=== PATIENT | female | born 1965 | race Caucasian/White ===

== ENCOUNTER → 2017-11-04 | Outpatient (CLI) | payer OTHER ==
[2017-11-04 12:31] LABS: Appearance,Urine Clear (Clear); Bilirubin,Urine Negative (Negative); Blood,Urine Negative (Negative); Color,Urine Colorless; Glucose,Urine (UA) Negative (Negative); Ketones,Urine Negative (Negative); Leukocyte Esterase,Urine Negative (Negative); Nitrite,Urine Negative (Negative); PH, Urine 5.5 (5.0-8.0); Protein,Urine Negative (Negative); Specific Gravity,Urine 1.002 (1.001-1.035); Urobilinogen,Urine <2.0 mg/dL (<2.0)
[2017-11-04 12:32] LABS: HCT 40.7 % (34.0-46.0); HGB 13.4 gm/dL (11.4-16.0); MCH 31.4 pg (25.0-35.0); MCHC 32.9 g/dL (31.0-37.0); MCV 95.3 fL (80.0-100.0); Mean Platelet Volume 6.9; Platelet Count 332 k/uL (150-450); RBC 4.27 m/uL (3.80-5.40); RDW 12.8 % (11.5-15.5); WBC 6.2 k/uL (3.8-10.6)
[2017-11-04 13:00] LABS: ALT 43 U/L (9-52); AST 35 U/L (14-36); Albumin 4.4 g/dL (3.5-5.0); Alkaline Phosphatase 77 U/L (38-126); Anion Gap 11 mmol/L; Blood Urea Nitrogen 13 mg/dL (7-17); Calcium 9.7 mg/dL (8.4-10.2); Carbon Dioxide 27 mmol/L (22-30); Chloride 99 mmol/L (98-107); Glucose 115 mg/dL (74-99); Potassium 4.4 mmol/L (3.5-5.1); Sodium 137 mmol/L (137-145); Total Bilirubin 0.5 mg/dL (0.2-1.3); Total Protein 7.3 g/dL (6.3-8.2)
[2017-11-04 13:01] LABS: Partial Thromboplastin Time 25.3 sec (22.0-30.0)
== END | disposition home or self-care (01) ==
LOC: LABPAT 11:48
PROVIDERS: ATTEND Orthopaedic Surgery
DX: Z01.812 Encounter for preprocedural laboratory examination (principal); M16.12 Unilateral primary osteoarthritis, left hip
CPT/HCPCS: 36415; 80053; 81003; 85027; 85610; 85730; 86850; 86900; 86901; 87070

== ENCOUNTER 2017-11-14 12:30 | Inpatient (IN) | payer OTHER ==
[2017-11-07 11:29] VITALS: BMI 31.4
[~2017-11-14 12:30] MED LIST: ACETAMINOPHEN TAB 500 MG TAB PO ONE; DEXAMETHASONE SOD PHOSPHATE 10 MG/ML 1 ML VIAL IV ONE; HYDROmorphone 0.5 MG/0.5 ML SYRINGE IVP PRN; LACTATED RINGERS 1,000 ML IV SCH; LIDOCAINE 1% 20 ML VIAL (10MG/ML) FOR IV START INTRADERMA PRN; MELOXICAM 7.5 MG TAB PO ONE; MIDAZOLAM 2 MG/2 ML VIAL IV PRN; ONDANSETRON 4 MG/2 ML VIAL IVP ONE; ONDANSETRON 4 MG/2 ML VIAL IVP PRN; ROPIVACAINE 246.25 MG, EPINEPHrine 0.5 MG, KETOROLAC 30 MG, cloNIDine HCL/PF 80 MCG, WA... MISCELLANE ONE; SCOPOLAMINE 1.5MG/72HR PATCH TRANSDERM ONE; TRANEXAMIC ACID 1,000 MG in SODIUM CHLORIDE 0.9% 50 ML IVPB ONE; ceFAZolin IN SWFI 2 GM/20 ML SYRINGE IVP ONE; fentaNYL (PF) 50 MCG/ML 2 ML AMP IV PRN
[2017-11-14 14:05] VITALS: RESP 16
[2017-11-14] MEDS ORDERED: MAGNESIUM HYDROXIDE 2,400 MG/10 ML CUP PO PRN (16:01)
[2017-11-14] MEDS ORDERED: ONDANSETRON 4 MG/2 ML VIAL IVP PRN (16:01)
[2017-11-14] MEDS ORDERED: HYDROmorphone 0.5 MG/0.5 ML SYRINGE IVP PRN ×3 (16:01)
[2017-11-14] MEDS ORDERED: hydrOXYzine PAMOATE 25 MG CAP PO PRN (16:01)
[2017-11-14] MEDS ORDERED: DIAZEPAM 5 MG TAB PO PRN ×2 (16:01)
[2017-11-14] MEDS ORDERED: NALOXONE 0.4 MG/ML 1 ML VIAL IV PRN (16:01)
[2017-11-14] MEDS ORDERED: HYDROcodone/APAP 10-325MG 1 EACH TAB PO PRN (16:01)
[2017-11-14] MEDS ORDERED: ePHEDrine SULFATE/0.9% NACL/PF 50 MG/5 ML SYRINGE IV ONE (16:29)
[2017-11-14] MEDS ORDERED: PROPOFOL 10 MG/ML 20 ML VIAL IV ONE (16:29)
[2017-11-14] MEDS ORDERED: MIDAZOLAM 2 MG/2 ML VIAL ONE (16:29)
[2017-11-14] MEDS ORDERED: diphenhydrAMINE 50 MG/ML 1 ML VIAL ONE (16:29)
[2017-11-14] MEDS ORDERED: ceFAZolin 3,000 MG in SODIUM CHLORIDE 0.9% IRRIGATIO 3,000 ML IRRIGATION ONE (17:02)
--- NOTE | 2017-11-14 17:55 | P.OP ---
Date of Procedure: 11/14/17 Preoperative Diagnosis: Severe osteoarthritis right hip Postoperative Diagnosis: Severe osteoarthritis right hip Procedure(s) Performed: Right total hip arthroplasty with a direct anterior approach Implants: Lira and nephew Polarstem size 5 standard Lira & Nephew R3, 3 hole acetabular shell, 52 mm Lira & Nephew reflection 6.5 mm cancellus screw, 20 mm 2 Lira & Nephew R3, XLPE 20 acetabular liner Lira & Nephew Oxinium femoral head 36 m, +4 All components were press-fit. The articulation is Oxinium on polyethylene. Anesthesia: spinal Surgeon: Maxx Coles Pumper Gauger Apprentice #1: Donna Isidro Estimated Blood Loss (ml): 200 (62 mL returned with Cell Saver) Pathology: other (Femoral head) Condition: stable Disposition: PACU Indications for Procedure: After failure of conservative treatment we discussed the surgical and nonsurgical treatment options at length. Patient wishes to proceed with a total hip arthroplasty with a direct anterior approach. Complications specific to this procedure were discussed at length, including but not limited to infection, leg length discrepancy, dislocation, and nerve injury. Patient is aware of all these complications and informed consent was obtained Operative Findings: The operative findings are consistent with severe osteoarthritis of the right hip Description of Procedure: Patient was seen and evaluated in the preoperative area, consent was reviewed, and the surgical site was marked with a skin marker. Patient was then brought to the operating room and given prophylactic antibiotics intravenously. 1 g of Tranexamic acid was also given. A spinal anesthetic was administered by the anesthesia department. The patient was then placed on the [place] table with the bony prominences well-padded. The hip area was then prepped and draped in usual sterile fashion. A universal timeout was then performed, which confirmed the patient's name, surgical site, ALLERGIES, and procedure being performed. Next the incision site was located at 1 cm distal and 1 cm lateral to the anterior superior iliac spine. The skin and subcutaneous tissues were sharply incised. Incision was carefully dissected down to the fascia overlying the tensor fascia jolynn muscle. This fascia was then incised in line with the incision. Next, using blunt finger dissection, the tensor fascia jolynn muscle was dissected off its investing fascia. The muscle was then carefully retracted laterally with a cobra retractor over the lateral neck of the femur. Next, the circumflex vessels were identified and cauterized using the AquaMantis device. The anterior hip capsule was then exposed. The capsule was then opened and an inverted T fashion. Cobra retractors were then placed intracapsularly. The proximal femur was then visualized. The femoral neck was then osteotomized appropriate level above the lesser trochanter. Small amount of traction was placed with the [place] table. A small wedge of bone was then removed from the remaining femoral head. Next, using a corkscrew femoral head was easily removed from the acetabulum. On gross visual inspection, the femoral head had complete loss of articular cartilage in multiple periarticular osteophytes. Attention was then turned to the acetabulum. the acetabulum was exposed and any remaining labrum was excised. Sequential reaming of the acetabulum was performed using fluoroscopic guidance. When the appropriate size was reached, a trial was then placed. The position and fit of the trial was checked with fluoroscopy. The trial was then removed. Then, using fluoroscopic guidance, the final implant was impacted at 20 of anteversion and 40 of abduction, and fully seated in the acetabulum. 2 screws were then placed in the acetabulum. Again fluoroscopy was used to check position of the screws. Next, the liner was then impacted, with a 20 elevated liner located in the anterior superior quadrant. Component locking was confirmed. Attention was then directed to the femur. With the aid of the [place] table, the femur was externally rotated to approximately 130, extended, and abducted under the opposite leg. A side hook was then placed under the proximal femur, and the side hook elevator was used to elevate the proximal femur. Retractors were then placed. A capsular release was performed, as well as a release of the conjoined tendon, which afforded excellent visualization of the proximal femur. Next, a box osteotome was used to lateralize the proximal femur. A handyperson was then used to locate the femoral canal. Sequential broaching was then performed with appropriate size which afforded excellent fixation in the proximal femur. A trial was then placed with appropriate head and neck, and the hip was gently reduced with the aid of the [place] table. Fluoroscopy was then used to check position of the components, as well as to ensure equal leg lengths. The hip was then gently dislocated and the trials were then removed. Final implants were then impacted and the hip was again reduced. Final fluoroscopic x-rays confirmed that the components were in anatomic position, as well as equal leg lengths. The hip was also taken through range of motion, and found to be stable. The hip was then copiously irrigated with antibiotic solution with pulsatile lavage. The hip was then irrigated with Irrisept solution. The soft tissues were then injected with a ropivacaine solution, which consisted of 246.25 mg of ropivacaine, 0.5 mg of epinephrine, 30 mg of Toradol, 80 g of clonidine, and 48.45 mL of sterile water, for a total of 100 mL of fluid injected. A second dose of 1 g of Tranexamic acid was also given. the fascia was then closed with 2-0 strata fix suture. The subcutaneous tissue was closed with 3-0 Vicryl. The subcuticular tissue was closed with 3-0 strata fix suture. The skin was then closed with Dermabond glue and a sterile silver dressing. The patient was then transferred to the recovery room in stable condition. The assistant director TY Díaz was required due to the complexity of surgery, and the need for skilled surgical elastic knitter for positioning, draping, exposure, retraction, and closure of the wound.
[2017-11-14] MEDS ORDERED: LACTATED RINGERS 1,000 ML IV ONE (18:06)
--- NOTE | 2017-11-14 18:58 | XR ---
EXAMINATION TYPE: XR Hip Limited RT DATE OF EXAM: 11/14/2017 COMPARISON: NONE HISTORY: Right hip surgery TECHNIQUE: Single view FINDINGS: There is a right hip prosthesis. Components are in anatomic position. IMPRESSION: No complicating process seen.
[2017-11-14] MEDS: LACTATED RINGERS 1,000 ML IV SCH (20:05)
[2017-11-14] MEDS: SODIUM CHLORIDE 0.9% 1,000 ML IV SCH (20:11)
[2017-11-14] MEDS ORDERED: SENNOSIDES-DOCUSATE SODIUM 1 EACH TAB PO SCH (21:00)
[2017-11-14] MEDS: ASPIRIN 325 MG TAB PO SCH (21:48)
[2017-11-14] MEDS ORDERED: ZOLPIDEM 10 MG TAB PO PRN (22:54)
[2017-11-14] MEDS ORDERED: LISINOPRIL 10 MG TAB PO SCH (23:00)
[2017-11-14] MEDS ORDERED: amLODIPine 5 MG TAB PO SCH (23:00)
--- NOTE | 2017-11-14 23:25 | P.CONS ---
History of Present Illness - Reason for Consult Consult date: 11/14/17 medical management Requesting physician: Maxx Coles - Chief Complaint elective right hip arthroplasty - History of Present Illness 52-year-old female with history of hypertension presented to Hospital for elective right total hip arthroplasty secondary to avascular necrosis of the hip joint. Patient reports that she has tried conservative medical therapy without much benefit pain became very severe and interfering with daily activities she decided to have it surgically corrected. Patient tolerated procedure well she seen in postoperative day 0, she has tolerated by mouth intake, passed urine, denies any chest pain or trouble breathing denies any abdominal pain nausea or vomiting denies any headache dizziness lightheadedness denies any focal neurologic deficits. She reports that her pain is well tolerated at this point. Review of Systems Pertinent positives as noted in HPI. All other systems were reviewed and are negative Past Medical History Past Medical History: Hypertension History of Any Multi-Drug Resistant Organisms: None Reported Past Surgical History: Section, Orthopedic Surgery, Uterine Ablation Additional Past Surgical History / Comment(s): [place]. Rotator cuff repair, L Achilles; Colonoscopy Past Anesthesia/Blood Transfusion Reactions: No Reported Reaction Past Psychological History: No Psychological Hx Reported Smoking Status: Former smoker Past Alcohol Use History: Occasional Additional Past Alcohol Use History / Comment(s): quit smoking 10 yrs ago; smoked off and on since teens about 1ppd Past Drug Use History: None Reported - Past Family History Mother Family Medical History: Cancer Additional Family Medical History / Comment(s): Breast CA Medications and Allergies Home Medications Medication Instructions Recorded Confirmed Type HYDROcodone/APAP 5-325MG [[place] 1 - 2 tab PO Q6HR PRN 11/07/17 11/14/17 History 5-325] Polyethylene Glycol 3350 [Miralax] 17 gm PO DAILY PRN 11/07/17 11/14/17 History Zolpidem [Ambien] 10 mg PO HS PRN 11/07/17 11/14/17 History amLODIPine BESYLATE/BENAZEPRIL 1 cap PO HS 11/07/17 11/14/17 History [Lotrel 5-10 mg Capsule] Allergies Allergy/AdvReac Type Severity Reaction Status Date / Time No Known Allergies Allergy Verified 11/14/17 21:49 Physical Exam Vitals: Vital Signs Temp Pulse Resp BP Pulse Ox 11/14/17 19:00 50 L 16 117/63 97 11/14/17 18:47 50 L 16 108/56 99 11/14/17 18:32 62 16 122/59 99 11/14/17 18:17 51 L 16 116/60 97 11/14/17 14:00 98.6 F 71 16 174/97 98 Intake and Output 11/14/17 11/14/17 11/14/17 06:59 14:59 22:59 Intake Total 950 1251 Output Total 1200 Balance 950 51 Intake: IV 950 1121 Intake, IV Titration 130 Amount Sodium Chloride 0.9% 1, 130 000 ml @ 65 mls/hr IV . [id number] CATRACHITO Rx#:[id number] Output: Urine 1000 Estimated Blood Loss 200 Constitutional: No acute distress, conversant, pleasant Eyes: Anicteric sclerae, moist conjunctiva, no lid-lag Pupils equal round reactive to light ENMT: NC/AT Oropharynx clear, no erythema, or exudates Neck: Supple, FROM, no masses, or JVD No carotid bruits No thyromegaly Lungs: Clear to auscultation Clear to percussion Normal respiratory effort, no accessory muscle use Cardiovascular: Heart regular in rate and rhythm, No murmurs, gallops, or rubs No peripheral edema Abdominal: Soft Nontender, no guarding, rebound or rigidity Abdomen moving with respiration Normoactive bowel sounds No hepatomegaly, No splenomegaly No palpable mass No abdominal wall hernia noted Skin: Normal temperature, tone, texture, turgor No induration No subcutaneous nodules No rash, lesions No ulcers Extremities: Right hip with surgical dressing looks intact clean and dry no bruising over the right hip No digital cyanosis No clubbing Pedal pulses intact and symmetrical Radial pulses intact and symmetrical No calf tenderness Psychiatric: Alert and oriented to person, place and time Appropriate affect fair judgment Neuro Muscles Strength 5/5 in all 4 extremities (except for limited assessment over the right lower extremity due to recent surgery and post operative pain) Sensation to light touch grossly present throughout Cranial nerves II-XII grossly intact No focal sensory deficits Lymphatics: no palpable cervical or supraclavicular , or inguinal lymph nodes Assessment and Plan Plan: 52 year old female with history of hypertension, presented for elective right THR , tolerated procedure well, medicine consulted for post operative medical management. #. Right total hip arthroplasty , POD zero pain management per ortho DVT prophylaxis per ortho #. Hypertension currently controlled continue with amlodipine and HCTz #. DVT PPX per orthopedics # Diet advance as tolerated #. insomnia PRN ambien # Code status full code follow up labs in AM Thank you for allowing us to participate in the care of this patient. Do not hesitate to contact us with questions. Someone can be reached from the [facility] hospitalist group at all hours of the day at [phone].
[2017-11-14] MEDS: ceFAZolin IN SWFI 2 GM/20 ML SYRINGE IVP SCH (23:45)
[2017-11-15] MEDS: HYDROcodone/APAP 10-325MG 1 EACH TAB PO PRN ×2 (05:13→11:15)
--- NOTE | 2017-11-15 06:55 | FL ---
EXAMINATION TYPE: FL guidance operating room DATE OF EXAM: 11/14/2017 HISTORY: Flouroscopy time 1 minute and 2 seconds of fluoroscopy provided. IMPRESSION: 1. Fluoroscopy time.
[2017-11-15] MEDS: SODIUM CHLORIDE 0.9% 1,000 ML IV SCH (06:57)
[2017-11-15] MEDS: LACTATED RINGERS 1,000 ML IV SCH (06:57)
--- NOTE | 2017-11-15 06:58 | XR ---
EXAMINATION TYPE: XR Hip Limited RT DATE OF EXAM: 11/14/2017 COMPARISON: NONE HISTORY: Postop TECHNIQUE: One view submitted. FINDINGS: There is postsurgical change in near anatomic alignment. There is soft tissue edema and emphysema. IMPRESSION: 1. Postoperative change. Appears in near-anatomic alignment.
[2017-11-15 07:48] LABS: Basophils % (A) 0 %; Eosinophils % (A) 0 %; HCT 35.2 % (34.0-46.0); HGB 11.7 gm/dL (11.4-16.0); Lymphocytes # (A) 1.1 k/uL (1.0-4.8); Lymphocytes % (A) 9 %; MCH 32.4 pg (25.0-35.0); MCHC 33.3 g/dL (31.0-37.0); MCV 97.3 fL (80.0-100.0); Mean Platelet Volume 7.3; Monocytes # (A) 0.7 k/uL (0-1.0); Monocytes % (A) 6 %; Neutrophils # (A) 10.3 k/uL (1.3-7.7); Neutrophils % (A) 85 %; Platelet Count 247 k/uL (150-450); RBC 3.62 m/uL (3.80-5.40); WBC 12.1 k/uL (3.8-10.6)
[2017-11-15 08:05] LABS: Anion Gap 10 mmol/L; Blood Urea Nitrogen 10 mg/dL (7-17); Calcium 9.1 mg/dL (8.4-10.2); Carbon Dioxide 26 mmol/L (22-30); Chloride 100 mmol/L (98-107); Glucose 125 mg/dL (74-99); Potassium 4.6 mmol/L (3.5-5.1); Sodium 136 mmol/L (137-145)
[2017-11-15 08:22] VITALS: BP 102/64; PULSE 58; TEMP 97.8
[2017-11-15] MEDS ORDERED: MELOXICAM 7.5 MG TAB PO SCH (09:00)
[2017-11-15] MEDS: ceFAZolin IN SWFI 2 GM/20 ML SYRINGE IVP SCH (09:18)
[2017-11-15] MEDS: ASPIRIN 325 MG TAB PO SCH (09:18)
--- NOTE | 2017-11-15 09:27 | P.DS ---
Providers Date of admission: 11/14/17 13:04 Expected date of discharge: 11/15/17 Attending physician: Maxx Coles Consults: 11/14/17 16:01 Consult Physician Routine Consulting Provider: Tammie Bacon Consult Reason/Comments: medical management Do you want consulting provider notified?: Yes 11/14/17 19:39 Consult Physician Routine Consulting Provider: Birgit Santamaria Consult Reason/Comments: Medical management Do you want consulting provider notified?: Yes Primary care physician: Tammie Bacon - Discharge Diagnosis(es) (1) Primary osteoarthritis of right hip Current Visit: Yes Status: Acute (2) S/P total hip arthroplasty Current Visit: Yes Status: Acute Hospital Course: This is a 52-year-old female with known history of degenerative arthritis of the right hip. The patient presents for evaluation. After discussion and consideration patient elects to proceed with total hip arthroplasty. The patient is seen preoperatively by Dr. Coles and medically cleared for surgery by their primary care physician. Patient is admitted to [facility] on 11/14/2017 for total hip arthroplasty. The procedures performed without complication or sequelae. The patient is doing well postoperatively. Labs and vital signs are stable on day of discharge. On day of discharge patient's hip incision is healing well. There is minimal erythema. There is no drainage noted at this time. There is minimal soft tissue swelling to the hip and thigh. Patient has full foot and ankle motion without difficulty or pain. Neurovascular status to the right lower extremity is intact. Patient is discharged home in good condition. Please see med rec for accurate list of home medications. Plan - Discharge Summary Discharge Rx Participant: Yes New Discharge Prescriptions: New Aspirin 325 mg PO BID #60 tab HYDROcodone/APAP 10-325MG [[place] 10-325] 1 - 2 tab PO Q4-6H PRN #90 tab PRN Reason: Pain Sennosides [Senokot] 1 tab PO BID #60 tablet No Action Polyethylene Glycol 3350 [Miralax] 17 gm PO DAILY PRN PRN Reason: Constipation amLODIPine BESYLATE/BENAZEPRIL [Lotrel 5-10 mg Capsule] 1 cap PO HS Zolpidem [Ambien] 10 mg PO HS PRN PRN Reason: Insomnia HYDROcodone/APAP 5-325MG [[place] 5-325] 1 - 2 tab PO Q6HR PRN PRN Reason: Pain Discharge Medication List HYDROcodone/APAP 5-325MG [[place] 5-325] 1 - 2 tab PO Q6HR PRN 11/07/17 [History] Polyethylene Glycol 3350 [Miralax] 17 gm PO DAILY PRN 11/07/17 [History] Zolpidem [Ambien] 10 mg PO HS PRN 11/07/17 [History] amLODIPine BESYLATE/BENAZEPRIL [Lotrel 5-10 mg Capsule] 1 cap PO HS 11/07/17 [ History] Aspirin 325 mg PO BID #60 tab 11/15/17 [Rx] HYDROcodone/APAP 10-325MG [[place] 10-325] 1 - 2 tab PO Q4-6H PRN #90 tab [Rx] Sennosides [Senokot] 1 tab PO BID #60 tablet 11/15/17 [Rx] Follow up Appointment(s)/Referral(s): Tammie Bacon MD [Primary Care Provider] - 1 Week Maxx Coles DO [Doctor of Osteopathic Medicine] - 2 Weeks Activity/Diet/Wound Care/Special Instructions: Weightbearing as tolerated with walker Leave dressing intact. Dressing may be removed by home care nurse in 10 days. May shower with dressing on. Follow-up with [facility] in 2 weeks, please call with any questions or concerns [phone] Discharge Disposition: HOME WITH HOME HEALTH SERVICES
== END 2017-11-15 14:57 | disposition home health service (06) | DRG 470 ==
LOC: 2ORMAIN 13:04 → 3SUR 19:35
PROVIDERS: ADMIT Orthopaedic Surgery; ATTEND Orthopaedic Surgery
PROC: 0SR906A Replacement of Right Hip Joint with Oxidized Zirconium on Polyethylene Synthetic Substitute, Uncemented, Open Approach (ICD-10-PCS; principal; 2017-11-14 14:50)
DX: M16.11 Unilateral primary osteoarthritis, right hip (principal); M87.9 Osteonecrosis, unspecified; I10 Essential (primary) hypertension; Z80.3 Family history of malignant neoplasm of breast; Z87.891 Personal history of nicotine dependence; G47.00 Insomnia, unspecified
CPT/HCPCS: 73501; 80048; 81025; 85025; 86850; 86891; 86900; 86901

== ENCOUNTER → 2018-07-24 | Outpatient (CLI) | payer OTHER | LOC: LABPAT 17:27 | PROVIDERS: ATTEND Orthopaedic Surgery | DX: M25.552 Pain in left hip (principal); I10 Essential (primary) hypertension; F17.210 Nicotine dependence, cigarettes, uncomplicated; M16.11 Unilateral primary osteoarthritis, right hip; Z96.641 Presence of right artificial hip joint; Z68.32 Body mass index [BMI] 32.0-32.9, adult | CPT/HCPCS: 86850; 86900; 86901 ==

== ENCOUNTER 2018-07-31 12:10 | Inpatient (IN) | payer OTHER ==
[2018-08-01] MEDS ORDERED: TRANEXAMIC ACID 1,000 MG in SODIUM CHLORIDE 0.9% 100 ML IVPB ONE ×4 (05:00)
[2018-08-01] MEDS ORDERED: ceFAZolin IN SWFI 2 GM/20 ML SYRINGE IVP ONE (05:00)
[2018-08-01] MEDS ORDERED: MELOXICAM 7.5 MG TAB PO ONE (05:00)
[2018-08-01] MEDS ORDERED: ACETAMINOPHEN TAB 500 MG TAB PO ONE (05:00)
[2018-08-01] MEDS ORDERED: HYDROmorphone 0.5 MG/0.5 ML SYRINGE IVP PRN ×3 (05:18→06:55)
[2018-08-01] MEDS ORDERED: ONDANSETRON 4 MG/2 ML VIAL IVP ONE (05:18)
[2018-08-01] MEDS ORDERED: MIDAZOLAM (PF) 2 MG/2 ML VIAL IV PRN (05:18)
[2018-08-01] MEDS ORDERED: DEXAMETHASONE SOD PHOSPHATE 10 MG/ML 1 ML VIAL IV ONE (05:18)
[2018-08-01] MEDS ORDERED: SCOPOLAMINE 1.5MG/72HR PATCH TRANSDERM ONE (05:18)
[2018-08-01] MEDS ORDERED: ROPIVACAINE 246.25 MG, EPINEPHrine 0.5 MG, KETOROLAC 30 MG, cloNIDine HCL/PF 80 MCG, WA... MISCELLANE ONE ×5 (05:58)
[2018-08-01] MEDS ORDERED: LIDOCAINE 1% 20 ML VIAL (10MG/ML) FOR IV START INTRADERMA ONE (06:22)
[2018-08-01] MEDS: LACTATED RINGERS 1,000 ML IV SCH (06:22)
[2018-08-01 06:42] LABS: INR 0.9 (<1.2); Partial Thromboplastin Time 25.4 sec (22.0-30.0); Prothrombin Time 9.9 sec (9.0-12.0)
[2018-08-01] MEDS ORDERED: hydrOXYzine PAMOATE 25 MG CAP PO PRN (06:55)
[2018-08-01] MEDS ORDERED: HYDROmorphone 1 MG/ML 1 ML SYRINGE IVP PRN (06:55)
[2018-08-01] MEDS ORDERED: MIDAZOLAM 2 MG/2 ML VIAL ONE (06:55)
[2018-08-01] MEDS ORDERED: MAGNESIUM HYDROXIDE 2,400 MG/10 ML CUP PO PRN (06:55)
[2018-08-01] MEDS ORDERED: SODIUM CHLORIDE 0.9% IRRIG 1,000 ML BTL IRRIGATION ONE (06:55)
[2018-08-01] MEDS ORDERED: fentaNYL (PF) 50 MCG/ML 2 ML AMP ONE (06:55)
[2018-08-01] MEDS ORDERED: HYDROcodone/APAP 5-325MG 1 EACH TAB PO PRN (06:55)
[2018-08-01] MEDS ORDERED: HEPARIN SODIUM,PORCINE 10,000 UNIT/ML 1 ML VIAL ONE (06:55)
[2018-08-01] MEDS ORDERED: SODIUM CHLORIDE 0.9% 100 ML BAG ONE (06:55)
[2018-08-01] MEDS ORDERED: ONDANSETRON 4 MG/2 ML VIAL IVP PRN (06:55)
[2018-08-01] MEDS ORDERED: DIAZEPAM 5 MG TAB PO PRN (06:55)
[2018-08-01] MEDS ORDERED: NALOXONE 0.4 MG/ML 1 ML VIAL IV PRN (06:55)
[2018-08-01] MEDS ORDERED: GLYCOPYRROLATE 0.2 MG/ML 2 ML VIAL ONE (06:55)
[2018-08-01] MEDS ORDERED: PHENYLEPHRINE-0.9% NACL SYG 1 MG/10 ML SYRINGE ONE (06:55)
[2018-08-01] MEDS ORDERED: TRANEXAMIC ACID 1,000 MG/10 ML VIAL ONE (06:55)
[2018-08-01] MEDS ORDERED: PROPOFOL 10 MG/ML 20 ML VIAL IV ONE (06:55)
[2018-08-01] MEDS ORDERED: ceFAZolin 3,000 MG in SODIUM CHLORIDE 0.9% IRRIGATIO 3,000 ML IRRIGATION ONE (06:59)
[2018-08-01] MEDS ORDERED: LACTATED RINGERS 1,000 ML IV ONE (08:05)
--- NOTE | 2018-08-01 08:34 | P.OP ---
Date of Procedure: 08/01/18 Preoperative Diagnosis: Avascular necrosis left hip Postoperative Diagnosis: Avascular necrosis left hip Procedure(s) Performed: Left total hip arthroplasty with a direct anterior approach Implants: Lira and nephew Polarstem size 4 standard Lira & Nephew R3, 3 hole acetabular shell, 52 mm Lira & Nephew reflection 6.5 mm cancellus screw, 20 mm 2 Lira & Nephew R3, XLPE 20 acetabular liner Lira & Nephew Oxinium femoral head 36 m, +4 All components were press-fit. The articulation is Oxinium on polyethylene. Anesthesia: spinal Surgeon: Maxx Coles Data Warehousing Manager #1: Donna Isidro Estimated Blood Loss (ml): 120 (50 mL returned with Cell Saver) Pathology: other (Femoral head) Condition: stable Disposition: PACU Indications for Procedure: After failure of conservative treatment we discussed the surgical and nonsurgical treatment options at length. Patient wishes to proceed with a total hip arthroplasty with a direct anterior approach. Complications specific to this procedure were discussed at length, including but not limited to infection, leg length discrepancy, dislocation, and nerve injury. Patient is aware of all these complications and informed consent was obtained Operative Findings: The operative findings are consistent with avascular necrosis of the left hip Description of Procedure: Patient was seen and evaluated in the preoperative area, consent was reviewed, and the surgical site was marked with a skin marker. Patient was then brought to the operating room and given prophylactic antibiotics intravenously. 1 g of Tranexamic acid was also given. A spinal anesthetic was administered by the anesthesia department. The patient was then placed on the [place] table with the bony prominences well-padded. The hip area was then prepped and draped in usual sterile fashion. A universal timeout was then performed, which confirmed the patient's name, surgical site, ALLERGIES, and procedure being performed. Next the incision site was located at 1 cm distal and 1 cm lateral to the anterior superior iliac spine. The skin and subcutaneous tissues were sharply incised. Incision was carefully dissected down to the fascia overlying the tensor fascia jolynn muscle. This fascia was then incised in line with the incision. Next, using blunt finger dissection, the tensor fascia jolynn muscle was dissected off its investing fascia. The muscle was then carefully retracted laterally with a cobra retractor over the lateral neck of the femur. Next, the circumflex vessels were identified and cauterized using the AquaMantis device. The anterior hip capsule was then exposed. The capsule was then opened and an inverted T fashion. Cobra retractors were then placed intracapsularly. The proximal femur was then visualized. The femoral neck was then osteotomized appropriate level above the lesser trochanter. Small amount of traction was placed with the [place] table. A small wedge of bone was then removed from the remaining femoral head. Next, using a corkscrew femoral head was easily removed from the acetabulum. On gross visual inspection, the femoral head had evidence of avascular necrosis with collapse of the femoral head. Attention was then turned to the acetabulum. the acetabulum was exposed and any remaining labrum was excised. Sequential reaming of the acetabulum was performed using fluoroscopic guidance. When the appropriate size was reached, a trial was then placed. The position and fit of the trial was checked with fluoroscopy. The trial was then removed. Then, using fluoroscopic guidance, the final implant was impacted at 20 of anteversion and 40 of abduction, and fully seated in the acetabulum. 2 screws were then placed in the acetabulum. Again fluoroscopy was used to check position of the screws. Next, the liner was then impacted, with a 20 elevated liner located in the anterior superior quadrant. Component locking was confirmed. Attention was then directed to the femur. With the aid of the [place] table, the femur was externally rotated to approximately 130, extended, and abducted under the opposite leg. A side hook was then placed under the proximal femur, and the side hook elevator was used to elevate the proximal femur. Retractors were then placed. A capsular release was performed, as well as a release of the conjoined tendon, which afforded excellent visualization of the proximal femur. Next, a box osteotome was used to lateralize the proximal femur. A gluer and slicer hand was then used to locate the femoral canal. Sequential broaching was then performed with appropriate size which afforded excellent fixation in the proximal femur. A trial was then placed with appropriate head and neck, and the hip was gently reduced with the aid of the [place] table. Fluoroscopy was then used to check position of the components, as well as to ensure equal leg lengths. The hip was then gently dislocated and the trials were then removed. Final implants were then impacted and the hip was again reduced. Final fluoroscopic x-rays confirmed that the components were in anatomic position, as well as equal leg lengths. The hip was also taken through range of motion, and found to be stable. The hip was then copiously irrigated with antibiotic solution with pulsatile lavage. The hip was then irrigated with Irrisept solution. The soft tissues were then injected with a ropivacaine solution, which consisted of 246.25 mg of ropivacaine, 0.5 mg of epinephrine, 30 mg of Toradol, 80 g of clonidine, and 48.45 mL of sterile water, for a total of 100 mL of fluid injected. A second dose of 1 g of Tranexamic acid was also given. the fascia was then closed with 2-0 strata fix suture. The subcutaneous tissue was closed with 3-0 Vicryl. The subcuticular tissue was closed with 3-0 strata fix suture. The skin was then closed with Dermabond glue and a sterile silver dressing. The patient was then transferred to the recovery room in stable condition. The child care assistant TY Díaz was required due to the complexity of surgery, and the need for skilled neurosurgical nurse practitioner for positioning, draping, exposure, retraction, and closure of the wound.
--- NOTE | 2018-08-01 09:18 | XR ---
EXAMINATION TYPE: XR Hip Limited LT DATE OF EXAM: 08/01/2018 CLINICAL HISTORY: Left hip pain and osteoarthritis. TECHNIQUE: Single AP portable view of left hip is obtained immediately postoperatively. COMPARISON: None. FINDINGS: Metallic hardware from left hip arthroplasty is seen and appears satisfactory in alignment and position. There is evidence of recent surgery with subcutaneous gas noted laterally. IMPRESSION: Metallic hardware from left hip arthroplasty is satisfactory in position.
--- NOTE | 2018-08-01 09:19 | FL ---
EXAMINATION TYPE: FL guidance operating room, XR Hip Limited LT DATE OF EXAM: 08/01/2018 CLINICAL HISTORY: Left hip replacement. TECHNIQUE: Fluoroscopy. Limited intraoperative views left hip. COMPARISON: None. FINDINGS: Fluoroscopic guidance was provided during hip replacement procedure performed by Dr. Emily gonzalez. A total of 28 seconds of fluoroscopic time was utilized during the procedure and 2 spot intraop erative images are acquired. Intraoperative images acquired show metallic hardware from total hip arthroplasty satisfactory in pos ition on single frontal projection. IMPRESSION: As Above.
[2018-08-01] MEDS: SODIUM CHLORIDE 0.9% 1,000 ML IV SCH ×2 (09:39→23:41)
[2018-08-01 09:48] VITALS: BMI 34.0
[2018-08-01] MEDS: HYDROcodone/APAP 5-325MG 1 EACH TAB PO PRN ×3 (11:50→22:15)
[2018-08-01] MEDS: ceFAZolin IN SWFI 2 GM/20 ML SYRINGE IVP SCH ×2 (15:02→23:37)
[2018-08-01] MEDS ORDERED: ZOLPIDEM 10 MG TAB PO PRN (15:30)
--- NOTE | 2018-08-01 17:16 | P.CONS ---
History of Present Illness - Reason for Consult recommendations regarding antidepressive medications - History of Present Illness patient underwent left total hip arthroplasty direct anterior approach for vascular necrosis of the left hip post surgery, patient is doing well did not pass gas yet patient has history of chronic constipation patient is presently on senna and docusate. Patient has some sleep issues as well. Patient denied any fever chills patient doesn't have any pain patient and dysuria cough. Patient is overall clinically doing well. Patient does have history of hypertension holding of antidepressive medication to prevent perioperative hypotension. Patient is presently not on beta leonela. Review of Systems REVIEW OF SYSTEMS: CONSTITUTIONAL: No fever, no malaise, no fatigue. HEENT: No recent visual problems or hearing problems. Denied any sore throat. CARDIOVASCULAR: No chest pain, orthopnea, PND, no palpitations, no syncope. PULMONARY: No shortness of breath, no cough, no hemoptysis. GASTROINTESTINAL: No diarrhea, no nausea, no vomiting, no abdominal pain. NEUROLOGICAL: No headaches, no weakness, no numbness. HEMATOLOGICAL: Denies any bleeding or petechiae. GENITOURINARY: Denies any burning micturition, frequency, or urgency. MUSCULOSKELETAL/RHEUMATOLOGICAL: Denies any joint pain, swelling, or any muscle pain. ENDOCRINE: Denies any polyuria or polydipsia. The rest of the 14-point review of systems is negative. Past Medical History Past Medical History: Hypertension, Osteoarthritis (OA) History of Any Multi-Drug Resistant Organisms: None Reported Past Surgical History: Section, Joint Replacement, Orthopedic Surgery, Uterine Ablation Additional Past Surgical History / Comment(s): Os[place]. Rotator cuff repair, L Achilles; Colonoscopy, RT [facility] 11/2017 Past Anesthesia/Blood Transfusion Reactions: No Reported Reaction Past Psychological History: No Psychological Hx Reported Smoking Status: Former smoker Past Alcohol Use History: Occasional Additional Past Alcohol Use History / Comment(s): quit smoking 2008 ; smoked off and on since teens about 1ppd Past Drug Use History: None Reported - Past Family History Mother Family Medical History: Cancer Additional Family Medical History / Comment(s): Breast CA Medications and Allergies Home Medications Medication Instructions Recorded Confirmed Type Zolpidem [Ambien] 10 mg PO HS PRN 11/07/17 08/01/18 History amLODIPine BESYLATE/BENAZEPRIL 1 cap PO HS 06/04/18 02/26/19 History [Lotrel 5-10 mg Capsule] Docusate [Colace] 100 mg PO DAILY PRN 07/24/18 08/01/18 History Allergies Allergy/AdvReac Type Severity Reaction Status Date / Time No Known Allergies Allergy Verified 08/01/18 09:05 Physical Exam Vitals: Vital Signs Temp Pulse Resp BP Pulse Ox 08/01/18 14:32 97.7 F 79 17 120/76 95 08/01/18 11:40 83 121/67 08/01/18 11:25 73 136/84 08/01/18 11:10 82 140/90 08/01/18 10:55 61 125/81 08/01/18 10:40 63 128/84 08/01/18 10:25 64 122/80 08/01/18 10:10 71 116/79 08/01/18 09:55 79 116/79 08/01/18 09:38 97.7 F 65 14 111/72 99 08/01/18 09:15 70 16 102/60 99 08/01/18 09:00 80 16 102/59 98 08/01/18 08:46 95 16 95/54 95 08/01/18 08:40 98.0 F 78 16 86/53 92 L 08/01/18 06:14 97.0 F L 78 16 144/89 100 Intake and Output 08/01/18 08/01/18 08/01/18 06:59 14:59 22:59 Intake Total 1001 250 Output Total 120 Balance 1001 130 Intake: IV 1001 250 Output: Estimated Blood Loss 120 Other: # Voids 1 PHYSICAL EXAMINATION: GENERAL: The patient is alert and oriented x3, not in any acute distress. Well developed, well nourished. HEENT: Pupils are round and equally reacting to light. EOMI. No scleral icterus. No conjunctival pallor. Normocephalic, atraumatic. No pharyngeal erythema. No thyromegaly. CARDIOVASCULAR: S1 and S2 present. No murmurs, rubs, or gallops. PULMONARY: Chest is clear to auscultation, no wheezing or crackles. ABDOMEN: Soft, nontender, nondistended, normoactive bowel sounds. No palpable organomegaly. MUSCULOSKELETAL: No joint swelling or deformity. EXTREMITIES: No cyanosis, clubbing, or pedal edema. NEUROLOGICAL: Gross neurological examination did not reveal any focal deficits. SKIN: No rashes. Assessment and Plan Plan: -left total hip arthroplasty for avascular necrosis of the left hip: Pain management DVT prophylaxis as per primary service -Hypertension: Hold off and evidences to prevent perioperative hypotension will monitor her vitals if needed patient was started back on her medications tomorrow -Sleep disorder: Further workup as an outpatient patient presently will be started on Ambien -Chronic constipation senna and Colace are appropriate and patient is expected to have constipation because of the opiate analgesia she is receiving
[2018-08-01] MEDS: ASPIRIN 325 MG TAB PO SCH (20:52)
[2018-08-01] MEDS ORDERED: SENNOSIDES-DOCUSATE SODIUM 1 EACH TAB PO SCH (21:00)
[2018-08-02] MEDS: HYDROcodone/APAP 5-325MG 1 EACH TAB PO PRN ×3 (03:43→14:12)
[2018-08-02] MEDS: LACTATED RINGERS 1,000 ML IV SCH (05:17)
[2018-08-02 08:06] VITALS: BP 121/74; PULSE 76; RESP 16; TEMP 98.4
[2018-08-02] MEDS: SODIUM CHLORIDE 0.9% 1,000 ML IV SCH (08:51)
[2018-08-02 08:59] LABS: Basophils % (A) 0 %; Eosinophils # (A) 0.1 k/uL (0-0.7); Eosinophils % (A) 2 %; HCT 33.4 % (34.0-46.0); HGB 10.9 gm/dL (11.4-16.0); Lymphocytes % (A) 31 %; MCHC 32.7 g/dL (31.0-37.0); MCV 97.7 fL (80.0-100.0); Mean Platelet Volume 6.8; Monocytes # (A) 0.3 k/uL (0-1.0); Monocytes % (A) 4 %; Neutrophils % (A) 61 %; Platelet Count 219 k/uL (150-450); RBC 3.42 m/uL (3.80-5.40); RDW 12.3 % (11.5-15.5); WBC 6.5 k/uL (3.8-10.6)
[2018-08-02] MEDS ORDERED: MELOXICAM 7.5 MG TAB PO SCH (09:00)
[2018-08-02] MEDS: ASPIRIN 325 MG TAB PO SCH (09:00)
--- NOTE | 2018-08-02 09:55 | P.DS ---
Providers Date of admission: 08/01/18 05:51 Expected date of discharge: 08/02/18 Attending physician: Maxx Coles Consults: 08/01/18 06:55 Consult Physician Routine Consulting Provider: Tammie Bacon Consult Reason/Comments: medical management Do you want consulting provider notified?: Yes 08/01/18 09:04 Consult Physician Routine Consulting Provider: Magda Vo Consult Reason/Comments: medical management Do you want consulting provider notified?: Yes Primary care physician: Tammie Bacon - Discharge Diagnosis(es) (1) Osteoarthritis of left hip Current Visit: Yes Status: Acute (2) Status post total hip replacement, left Current Visit: Yes Status: Acute Hospital Course: This is a 53-year-old female with known history of avascular necrosis of the left hip. The patient presents for evaluation. After discussion and consideration patient elects to proceed with total hip arthroplasty. The patient is seen preoperatively by Dr. Coles and medically cleared for surgery by their primary care physician. Patient is admitted to [facility] on 08/01/2018 for total hip arthroplasty. The procedures performed without complication or sequelae. The patient is doing well postoperatively. Labs and vital signs are stable on day of discharge. On day of discharge patient's hip incision is healing well. There is minimal erythema. There is no drainage noted at this time. There is minimal soft tissue swelling to the hip and thigh. Patient has full foot and ankle motion without difficulty or pain. Calf is soft and nontender to palpation. Neurovascular status to the left lower extremity is intact. Patient is discharged home in good condition. Opioid start talking form is reviewed and signed at patient bedside. Please see med rec for accurate list of home medications. Plan - Discharge Summary Discharge Rx Participant: Yes New Discharge Prescriptions: New Aspirin 325 mg PO BID #60 tab HYDROcodone/APAP 5-325MG [[place] 5-325] 1 - 2 tab PO Q6HR PRN #56 tab PRN Reason: Pain Sennosides [Senokot] 1 tab PO BID #60 tablet No Action amLODIPine BESYLATE/BENAZEPRIL [Lotrel 5-10 mg Capsule] 1 cap PO HS Zolpidem [Ambien] 10 mg PO HS PRN PRN Reason: Insomnia Docusate [Colace] 100 mg PO DAILY PRN PRN Reason: Constipation Discharge Medication List Zolpidem [Ambien] 10 mg PO HS PRN 11/07/17 [History] amLODIPine BESYLATE/BENAZEPRIL [Lotrel 5-10 mg Capsule] 1 cap PO HS 11/07/17 [ History] Docusate [Colace] 100 mg PO DAILY PRN 07/24/18 [History] Aspirin 325 mg PO BID #60 tab 08/02/18 [Rx] HYDROcodone/APAP 5-325MG [[place] 5-325] 1 - 2 tab PO Q6HR PRN #56 tab 08/02/18 [ Rx] Sennosides [Senokot] 1 tab PO BID #60 tablet 08/02/18 [Rx] Follow up Appointment(s)/Referral(s): [facility], [NON-STAFF] - Maxx Coles DO [Doctor of Osteopathic Medicine] - 2 Weeks Activity/Diet/Wound Care/Special Instructions: Weightbearing as tolerated with walker. Leave dressing intact. Dressing may be removed by home care nurse or by patient in 10 days. May shower with dressing on. Please follow-up with [facility] in 2 weeks and call with any questions or concerns, . Discharge Disposition: HOME WITH HOME HEALTH SERVICES
--- NOTE | 2018-08-02 15:30 | P.PN ---
Subjective No overnight events patient is clinically doing well did pass gas did not move her bowel yet. I reviewed her discharge medication reconciliation patient can do simple her antidepressant medication and the patient was advised to check her blood pressure twice a day Constitutional: Denied any fatigue denied any fever. Cardio vascular: denied any chest pain, palpitations Gastrointestinal denied any nausea vomiting Pulmonary: Denied any shortness of breath cough Neurologic denied any new focal deficits All inpatient medications were reviewed and appropriate changes in these medications as dictated in the interval history and assessment and plan. Objective - Vital Signs Vital signs: Vital Signs Temp 98.4 F 08/02/18 07:56 Pulse 76 08/02/18 07:56 Resp 16 08/02/18 07:56 BP 121/74 08/02/18 07:56 Pulse Ox 96 08/02/18 07:56 Intake & Output 08/01/18 08/02/18 08/02/18 18:59 06:59 18:59 Intake Total 250 490 Output Total 120 Balance 130 490 Intake: IV 250 Intake, IV Titration 490 Amount Sodium Chloride 0.9% 1, 490 000 ml @ 70 mls/hr IV . [id number] [facility] Rx#:[id number] Output: Estimated Blood Loss 120 Other: Voiding Method Toilet Toilet # Voids 1 3 - Exam PHYSICAL EXAMINATION: GENERAL: The patient is alert and oriented x3, not in any acute distress. Well developed, well nourished. HEENT: Pupils are round and equally reacting to light. EOMI. No scleral icterus. No conjunctival pallor. Normocephalic, atraumatic. No pharyngeal erythema. No thyromegaly. CARDIOVASCULAR: S1 and S2 present. No murmurs, rubs, or gallops. PULMONARY: Chest is clear to auscultation, no wheezing or crackles. ABDOMEN: Soft, nontender, nondistended, normoactive bowel sounds. No palpable organomegaly. MUSCULOSKELETAL: Deferred to orthopedic surgery EXTREMITIES: No cyanosis, clubbing, or pedal edema. NEUROLOGICAL: Gross neurological examination did not reveal any focal deficits. SKIN: No rashes. - Labs CBC & Chem 7: 08/02/18 08:10 Labs: Abnormal Lab Results - Last 24 Hours (Table) 08/02/18 Range/Units 08:10 RBC 3.42 L (3.80-5.40) m/uL Hgb 10.9 L (11.4-16.0) gm/dL Hct 33.4 L (34.0-46.0) % Assessment and Plan Plan: -left total hip arthroplasty for avascular necrosis of the left hip: Pain management DVT prophylaxis as per primary service -Hypertension: Patient can resume her medication, check her blood pressure at home -Sleep disorder: Further workup as an outpatient -Chronic constipation senna and Colace are appropriate
== END 2018-08-02 14:23 | disposition home health service (06) | DRG 470 ==
LOC: 2ORMAIN 08-01 05:51 → 4SSUR 08-01 08:43
PROVIDERS: ADMIT Orthopaedic Surgery; ATTEND Orthopaedic Surgery
PROC: 30233N0 Transfusion of Autologous Red Blood Cells into Peripheral Vein, Percutaneous Approach (ICD-10-PCS; 2018-08-01)
PROC: 0SRB06A Replacement of Left Hip Joint with Oxidized Zirconium on Polyethylene Synthetic Substitute, Uncemented, Open Approach (ICD-10-PCS; principal; 2018-08-01 11:40)
DX: M87.852 Other osteonecrosis, left femur (principal); M16.12 Unilateral primary osteoarthritis, left hip; I10 Essential (primary) hypertension; E55.9 Vitamin D deficiency, unspecified; K59.09 Other constipation; G47.9 Sleep disorder, unspecified; L30.9 Dermatitis, unspecified; Z79.899 Other long term (current) drug therapy; Z98.891 History of uterine scar from previous surgery; Z87.891 Personal history of nicotine dependence; Z98.51 Tubal ligation status; Z80.3 Family history of malignant neoplasm of breast; Z82.49 Family history of ischemic heart disease and other diseases of the circulatory system
CPT/HCPCS: 73501; 85025; 85610; 85730; 86850; 86891; 86900; 86901; 88300